=== PATIENT | female | born 1970 | race Caucasian/White ===

== ENCOUNTER → 2022-06-06 | Outpatient (CLI) | payer OTHER ==
--- NOTE | 2022-06-06 16:11 | BD ---
EXAMINATION TYPE: Axial Bone Density DATE OF EXAM: 06/06/2022 CLINICAL HISTORY: 51 years old Female. ICD-10 CODE: M85.851 Height: 61 Weight: 175.3 FRAX RISK QUESTIONS: Alcohol (3 or more units per day): no Family History (Parent hip fracture): no Glucocorticoids (More than 3mos): no History of Fracture in Adulthood: no Secondary Osteoporosis: 1. Type 1 Diabetes: no 2. Hyperthyroidism: no 3. Menopause before 45: yes 4. Malnutrition: no 5. Chronic liver disease: no Rheumatoid Arthritis: no Current Tobacco Use: no RISK FACTORS HISTORY OF: Hip Fracture (Right/Left): no Spine Fracture: no History of Wrist Fracture: no Surgery to Spine/Hip(right/left)/Wrist (right/left): no Family History of Osteoporosis: no Active: no Diet low in dairy products/other sources of calcium: no Postmenopausal woman: yes Take estrogen and/or progesterone medications: no Lost more than 2 inches in height since high school: no Frequent falls: no Poor Health: no Hyperparathyroidism: no Adrenal Insufficiency: no MEDICATIONS: Prednisone or other steroids: no Thyroid Medications: no Osteoporosis Medications: no Additional Medications: BP meds x3, Cholesterol Meds, Anxiety Meds x2, Reflux Meds x2, Multi Vit., Zi nc, Vit D weekly, Pain Meds x2, Inhaler x2 Additional History: Pt has MS and COPD, Bilateral mastectomy 2015 EXAM MEASUREMENTS: Bone mineral densitometry was performed using the [employer] System. Bone mineral density as measured about the Lumbar spine is: ----- L1-L4(G/cm2): 0.908 T Score Values are as follows: ----- L1: -2.3 ----- L2: -1.9 ----- L3: -2.7 ----- L4: -2.3 ----- L1-L4: -2.3 Z Score Values are as follows: ----- L1: -2.3 ----- L2: -2.0 ----- L3: -2.7 ----- L4: -2.4 ----- L1-L4: -2.3 Baseline Study Bone mineral density about the R hip (g/cm2): 0.753 Bone mineral density about the L hip (g/cm2): 0.793 T Score values are as follows: -----R Neck: -2.3 -----L Neck: -1.9 -----R Total: -2.0 -----L Total: -1.7 Z Score values are as follows: -----R Neck: -1.8 -----L Neck: -1.4 -----R Total: -1.9 -----L Total: -1.6 Baseline Study FRAX%s: The graph provided illustrates a 6.0% chance for a major osteoporotic fx and a 1.1% chance fo r the hips probability for fx in 10 years time. IMPRESSION: Osteopenia (T Score between -2.5 and -1). There is slightly increased risk of fracture and the patient may be considered for treatment. Re-Screen 2-5 years. NOTE: T-SCORE=SD OF THE YOUNG ADULT MEAN.
== END | disposition home or self-care (01) ==
LOC: RADBDWWP 12:42
PROVIDERS: ATTEND Internal Medicine
DX: M81.0 Age-related osteoporosis without current pathological fracture (principal); M85.89 Other specified disorders of bone density and structure, multiple sites; Z78.0 Asymptomatic menopausal state
CPT/HCPCS: 77080

== ENCOUNTER → 2022-07-12 | Outpatient (CLI) | payer OTHER ==
--- NOTE | 2022-07-12 09:26 | XR ---
EXAMINATION TYPE: XR abdomen 1V DATE OF EXAM: 07/12/2022 9:16 AM CLINICAL HISTORY: Constipation. Right-sided pain. TECHNIQUE: Two supine KUB images of the abdomen are obtained. COMPARISON: CT abdomen and pelvis August 28, 2021. FINDINGS: Scattered gas is seen in non-distended small bowel loops. Gas and fecal material is seen in non-distended colon. Mild to moderate diffuse colonic fecal prominence. Numerous surgical clips over lie the lower abdomen and pelvis. Cholecystectomy clips are redemonstrated. Lung bases remain clear. Osseous structures are intact IMPRESSION: Overall nonobstructive bowel gas pattern. Mild to moderate diffuse colonic fecal stasis noted.
== END | disposition home or self-care (01) ==
LOC: RADXRMAIN 08:54
PROVIDERS: ATTEND Nurse Practitioner Family
DX: K59.09 Other constipation (principal)
CPT/HCPCS: 74018

== ENCOUNTER 2022-08-08 19:19 | Outpatient (CLI) | payer OTHER | END 2022-08-09 23:59 | LOC: 3 N SLEEP 19:19 → EDSTATUS 19:20 → 3 N SLEEP 08-09 06:15 | PROVIDERS: ATTEND Internal Medicine Critical Care Medicine | DX: G47.33 Obstructive sleep apnea (adult) (pediatric) (principal); Z88.0 Allergy status to penicillin; Z88.5 Allergy status to narcotic agent | CPT/HCPCS: 95811 ==

== ENCOUNTER → 2022-08-23 | Outpatient (CLI) | payer OTHER ==
[2022-08-23 16:54] LABS: ALT 27 U/L (8-44); AST 21 U/L (13-35); Albumin 4.3 d/dL (3.8-4.9); Albumin/Globulin Ratio 1.72 Ratio (1.60-3.17); Alkaline Phosphatase 118 U/L (41-126); BUN/Creat Ratio 11.89 Ratio (12.00-20.00); Blood Urea Nitrogen 10.7 mg/dL (9.0-27.0); Calcium 9.6 mg/dL (8.7-10.3); Carbon Dioxide 29.6 mmol/L (21.6-31.8); Chloride 103 mmol/L (96-109); Globulin 2.5 d/dL (1.6-3.3); Glucose 85 mg/dL (70-110); LDL Cholesterol,Calculated 58.4 mg/dL (0.0-131.0); Magnesium 1.9 mg/dL (1.5-2.4); Potassium 3.3 mmol/L (3.5-5.5); Sodium 145 mmol/L (135-145); Total Bilirubin 0.5 mg/dL (0.3-1.2); Total Protein 6.8 d/dL (6.2-8.2)
[2022-08-23 17:34] LABS: Basophils # (A) 0.07 X 10*3/uL (0.00-0.10); Eosinophils # (A) 0.48 X 10*3/uL (0.04-0.35); Eosinophils % (A) 6.9 %; HCT 42.1 % (37.2-46.3); HGB 13.2 d/dL (12.0-15.0); Lymphocytes # (A) 1.81 X 10*3/uL (0.90-5.00); Lymphocytes % (A) 26.1 %; MCH 28.8 pg (27.0-32.0); MCHC 31.4 d/dL (32.0-37.0); MCV 91.7 FL (80.0-97.0); Mean Platelet Volume 10.6 FL (9.5-12.2); Monocytes # (A) 0.85 X 10*3/uL (0.20-1.00); Monocytes % (A) 12.3 %; NRBC Per 100 WBC 0 X 10*3/uL (0.00-0.01); Neutrophils % (A) 53.4 %; Platelet Count 325 X 10*3/uL (140-440); RBC 4.59 X 10*6/uL (4.10-5.20); RDW 13.7 % (11.5-14.5); WBC 6.93 X 10*3/uL (4.50-10.00)
== END | disposition home or self-care (01) ==
LOC: LABWHC1 10:01
PROVIDERS: ATTEND Nurse Practitioner Family
DX: I10 Essential (primary) hypertension (principal); E55.9 Vitamin D deficiency, unspecified; E78.2 Mixed hyperlipidemia; M85.851 Other specified disorders of bone density and structure, right thigh
CPT/HCPCS: 36415; 80053; 80061; 82306; 83036; 83735; 84439; 84443; 85025

== ENCOUNTER → 2022-10-17 | Outpatient (CLI) | payer OTHER ==
--- NOTE | 2022-10-17 15:27 | US ---
EXAMINATION TYPE: US thyroid st tissue head/neck DATE OF EXAM: 10/17/2022 COMPARISON: NONE CLINICAL INDICATION: Female, 51 years old with history of R59.9 ENLARGED LYMPH NODES, UNSPECIFIED; Pa tient states feeling swelling within the neck Bilateral neck scanned, no evidence of lymphadenopathy. IMPRESSION: No distinct abnormality appreciated.
== END | disposition home or self-care (01) ==
LOC: RADUSWWP 14:56
PROVIDERS: ATTEND Internal Medicine
DX: R59.0 Localized enlarged lymph nodes (principal)
CPT/HCPCS: 76536

== ENCOUNTER → 2022-11-04 | Outpatient (CLI) | payer OTHER ==
--- NOTE | 2022-11-04 08:08 | CT ---
EXAMINATION TYPE: CT soft tissue neck wo/w con CT DLP: 896.70 mGycm, Automated exposure control for dose reduction was used. DATE OF EXAM: 11/04/2022 8:01 AM COMPARISON: PET/CT 10/27/2021, thyroid ultrasound 10/17/2022. CLINICAL INDICATION:Female, 52 years old with history of R22.1 swelling; PHH, Rt side neck swelling, area of concern marked by BB TECHNIQUE: Standard enhanced CT of the neck before and after intravenous administration of 100 cc of Isovue 300. Axial sections with coronal and sagittal reformats were obtained. FINDINGS: Brain: Visualized portions are grossly unremarkable. Jamison cisterna magna. Orbits: Unremarkable Sinuses: Grossly unremarkable. Suprahyoid Neck: The oropharynx, oral cavity, parapharyngeal and retropharyngeal spaces are clear and symmetric. The nasopharynx is unremarkable. Infrahyoid Neck: The larynx, hypopharynx, and supraglottic area are clear and symmetric. Parotid Glands: Unremarkable. Submandibular Glands: Unremarkable. Musculoskeletal: No acute osseous pathology. Lymph nodes: No pathologically enlarged lymphadenopathy identified.. Vascular structures: Visualized major arteries are patent without evidence of aneurysm. Thoracic Inlet/airway: Airway is patent. The lung apices are clear. Couple of calcified mediastinal g ranulomas. Soft tissues/Thyroid: Thyroid and remainder of the soft tissues are unremarkable. No abnormality iden tified at site of palpable marker. Other: none. IMPRESSION No CT evidence for significant abnormality. No abnormality at palpable marker site.
== END | disposition home or self-care (01) ==
LOC: RADCTMAIN 07:31
PROVIDERS: ATTEND Internal Medicine
DX: R22.1 Localized swelling, mass and lump, neck (principal)
CPT/HCPCS: 70492; Q9967

== ENCOUNTER → 2022-12-07 | Outpatient (CLI) | payer OTHER ==
[2022-12-07 14:22] LABS: T4, Free (Free Thyroxine) 1.3 ng/dL (0.80-1.80)
== END | disposition home or self-care (01) ==
LOC: LABWHC1 08:50
PROVIDERS: ATTEND Nurse Practitioner Family
DX: E03.9 Hypothyroidism, unspecified (principal)
CPT/HCPCS: 36415; 84439; 84443; 84481

== ENCOUNTER → 2023-01-17 | Outpatient (CLI) | payer OTHER ==
--- NOTE | 2023-01-17 10:48 | FL ---
ESOPHOGRAM. HISTORY: Dysphagia Esophagram was performed per the air contrast technique. The patient swallowed barium and effervesce nt crystals without difficulty or delay. Esophageal peristalsis and motility appear to be within normal limits. No evidence for mass or filling defect. Small Zenker's diverticulum noted at the C6-7 level to the le ft of midline. Small partially reducible hiatal hernia. Subsequently single contrast cervical esophagram was performed which fails demonstrate evidence for a spiration penetration or mass. IMPRESSION: 1.Small partially reducible hiatal hernia. 2. Small Zenker's diverticulum.
== END | disposition home or self-care (01) ==
LOC: RADUSWWP 09:44
PROVIDERS: ATTEND Internal Medicine Gastroenterology
DX: F45.8 Other somatoform disorders (principal); K44.9 Diaphragmatic hernia without obstruction or gangrene; K22.5 Diverticulum of esophagus, acquired
CPT/HCPCS: 74220